=== PATIENT | female | born 1945 | race Caucasian/White ===

== ENCOUNTER 2019-05-15 01:34 | Inpatient (IN) ==
[2019-05-15 02:03] LABS: Bilirubin,Urine Negative (Negative); Blood,Urine Negative (Negative); Clarity,Urine Clear (Clear); Color,Urine Yellow (Yellow); Glucose,Urine (UA) Normal (Normal); Ketones,Urine Negative (Negative); Leukocyte Esterase,Urine Negative (Negative); Nitrite,Urine Negative (Negative); Protein,Urine Negative (Neg-Trace); Specific Gravity,Urine 1.012 (1.010-1.025); Urobilinogen,Urine Normal (Normal)
[2019-05-15] MEDS ORDERED: Aspirin 81 MG TAB.CHEW PO ONE (02:23)
[2019-05-15] MEDS ORDERED: *HR* HYDROmorphone (PF) 1 MG/ML SYRINGE IVP ONE ×2 (02:23→04:37)
[2019-05-15] MEDS ORDERED: Ondansetron 4 MG/2 ML VIAL IVP ONE (02:24)
[2019-05-15 02:25] LABS: Basophils % 0.4 %; Eosinophils # 0.2 K/mcL (0.0-0.6); Eosinophils % 1.5 %; Hematocrit 43.5 % (35.3-44.9); Hemoglobin 13.4 g/dL (11.5-15.4); Immature Granulocytes % 0.3 % (0-4); Lymphocytes # 1.8 K/mcL (0.6-4.6); Lymphocytes % 15.7 %; Mean Corpuscular HGB Conc 30.8 g/dL (31.6-35.5); Mean Corpuscular Hemoglobin 27.1 pg (28.0-33.3); Mean Corpuscular Volume 88.1 fL (83.0-100.0); Mean Platelet Volume 9.9 fL (9.4-12.4); Monocytes # 0.9 K/mcL (0.0-1.3); Monocytes % 8.3 %; Neutrophils # 8.3 K/mcL (1.6-8.9); Platelet Count 225 K/mcL (140-400); Red Blood Count 4.94 M/mcL (3.82-4.97); Red Cell Distribution Width 13.7 % (11.5-14.5); Segmented Neutrophils % 73.8 %; White Blood Count 11.3 K/mcL (4.3-11.1)
[2019-05-15] MEDS ORDERED: Isovue-370 500 ML BOTTLE IVP ONE (02:40)
[2019-05-15 03:17] LABS: Lipase > 1800 Units/L (11-82)
[2019-05-15 03:18] LABS: Alanine Aminotransferase 27 Units/L (7-52); Albumin 3.9 g/dL (3.5-5.7); Albumin/Globulin Ratio 1.2 (1.1-2.2); Alkaline Phosphatase 89 Units/L (34-104); Aspartate Amino Transferase 49 Units/L (13-39); BUN/Creatinine Ratio 22 (6-26); Bilirubin,Direct 0.1 mg/dL (0.0-0.2); Bilirubin,Indirect 0.4 mg/dL (0.0-1.0); Bilirubin,Total 0.5 mg/dL (0.3-1.0); Blood Urea Nitrogen 17 mg/dL (8-23); Calcium 9.5 mg/dL (8.6-10.3); Carbon Dioxide 24 mEq/L (23-29); Chloride 104 mEq/L (98-107); Globulin 3.3 g/dL (2.4-3.5); Glucose 134 mg/dL (70-105); Osmolality,Calculated 282 (280-300); Potassium 3.7 mEq/L (3.5-5.1); Sodium 134 mEq/L (136-145); Total Protein 7.2 g/dL (6.4-8.9); eGFR For African Americans > 60 (> 60); eGFR For Non-African Americans > 60 (> 60)
[2019-05-15 04:09] LABS: Triglycerides 74 mg/dL (< 150)
[2019-05-15] MEDS ORDERED: Naloxone 0.4 MG/ML INJ IVP PRN (07:16)
[2019-05-15] MEDS ORDERED: Ampicillin/Sulbactam 3,000 MG in 0.9 % Sodium Chloride 100 ML IVPB SCH (07:18)
[2019-05-15] MEDS: 0.9 % Sodium Chloride 1,000 ML IVC SCH ×2 (09:36→23:38)
[2019-05-15] MEDS: Ampicillin/Sulbactam 3,000 MG in 0.9 % Sodium Chloride Mini Bag 100 ML IVPB SCH ×3 (09:36→23:39)
[2019-05-15] MEDS ORDERED: Ondansetron 4 MG/2 ML VIAL IVP PRN (14:18)
[2019-05-15] MEDS: Ketorolac 15 MG/ML VIAL IVP PRN ×2 (14:48→21:57)
[2019-05-16] MEDS ORDERED: Ampicillin/Sulbactam 3,000 MG in 0.9 % Sodium Chloride Mini Bag 100 ML IVPB SCH (06:00)
[2019-05-16] MEDS: Ketorolac 15 MG/ML VIAL IVP PRN (06:09)
[2019-05-16] MEDS: Ampicillin/Sulbactam 3,000 MG in 0.9 % Sodium Chloride Mini Bag 100 ML IVPB SCH ×3 (06:11→18:04)
[2019-05-16 07:28] LABS: Basophils % 0.1 %; Eosinophils % 0.2 %; Hematocrit 38.4 % (35.3-44.9); Hemoglobin 12.1 g/dL (11.5-15.4); Immature Granulocytes % 0.6 % (0-4); Lymphocytes # 1.5 K/mcL (0.6-4.6); Lymphocytes % 12.8 %; Mean Corpuscular HGB Conc 31.5 g/dL (31.6-35.5); Mean Corpuscular Hemoglobin 27.9 pg (28.0-33.3); Mean Corpuscular Volume 88.5 fL (83.0-100.0); Mean Platelet Volume 10.1 fL (9.4-12.4); Monocytes # 0.9 K/mcL (0.0-1.3); Monocytes % 7.3 %; Neutrophils # 9.5 K/mcL (1.6-8.9); Platelet Count 182 K/mcL (140-400); Red Blood Count 4.34 M/mcL (3.82-4.97)
[2019-05-16] MEDS ORDERED: *HR* Rocuronium Bromide 50 MG/5 ML VIAL ONE (07:33)
[2019-05-16] MEDS ORDERED: Lidocaine -MPF 2% 2 ML VIAL ONE (07:33)
[2019-05-16] MEDS ORDERED: Ondansetron 4 MG/2 ML VIAL ONE (07:33)
[2019-05-16] MEDS ORDERED: *HR* FentaNYL (PF) 100 MCG/2 ML VIAL ONE (07:34)
[2019-05-16] MEDS ORDERED: *HR* Propofol 200 MG/20 ML VIAL IVP ONE (07:34)
[2019-05-16] MEDS ORDERED: Dexamethasone 4 MG/ML VIAL ONE (07:38)
[2019-05-16 07:45] LABS: Alanine Aminotransferase 19 Units/L (7-52); Albumin 3.4 g/dL (3.5-5.7); Albumin/Globulin Ratio 1.3 (1.1-2.2); Alkaline Phosphatase 70 Units/L (34-104); Aspartate Amino Transferase 20 Units/L (13-39); BUN/Creatinine Ratio 16 (6-26); Bilirubin,Total 0.6 mg/dL (0.3-1.0); Blood Urea Nitrogen 10 mg/dL (8-23); Calcium 8.4 mg/dL (8.6-10.3); Carbon Dioxide 27 mEq/L (23-29); Chloride 104 mEq/L (98-107); Globulin 2.6 g/dL (2.4-3.5); Glucose 104 mg/dL (70-105); Osmolality,Calculated 285 (280-300); Potassium 3.5 mEq/L (3.5-5.1); Sodium 138 mEq/L (136-145); eGFR For African Americans > 60 (> 60); eGFR For Non-African Americans > 60 (> 60)
[2019-05-16] MEDS ORDERED: Acetaminophen IV 1,000 MG/100 ML INFUS..BTL ONE (07:52)
[2019-05-16] MEDS ORDERED: Famotidine 20 MG/2 ML VIAL ONE (07:52)
[2019-05-16] MEDS ORDERED: *HR* OxyCODONE Immed Rel 5 MG TABLET PO PRN (07:57)
[2019-05-16] MEDS ORDERED: *HR* Promethazine 25 MG/ML VIAL IVP PRN (07:57)
[2019-05-16] MEDS ORDERED: *HR* HYDROmorphone PF 0.5 MG/0.5 ML SYRINGE IVP PRN (07:57)
[2019-05-16] MEDS ORDERED: Ondansetron 4 MG/2 ML VIAL IVP ONE (07:57)
[2019-05-16] MEDS: Ringers Solution, Lactated 1,000 ML ONE ×2 (08:00→09:16)
[2019-05-16] MEDS ORDERED: *HR* Midazolam HCl 2 MG/2 ML VIAL ONE (08:06)
[2019-05-16] MEDS ORDERED: Bupivacaine/EPI 1:200k 0.5%PF 30 ML VIAL ONE (08:34)
[2019-05-16] MEDS ORDERED: *HR* PHENYLEPHRINE 1,000 MCG/10 ML SYRINGE IVP ONE (08:56)
[2019-05-16] MEDS ORDERED: Naloxone 0.4 MG/ML INJ IVP PRN (10:54)
[2019-05-16] MEDS ORDERED: Ondansetron 4 MG/2 ML VIAL IVP PRN (10:54)
[2019-05-16] MEDS ORDERED: Ketorolac 15 MG/ML VIAL IVP PRN (10:54)
[2019-05-16] MEDS: Trolamine Salicylate/Aloe Vera 85 APPL/85 GM TUBE TP PRN (21:06)
[2019-05-17] MEDS: Ampicillin/Sulbactam 3,000 MG in 0.9 % Sodium Chloride Mini Bag 100 ML IVPB SCH ×2 (01:59→05:49)
[2019-05-17 07:50] LABS: Basophils % 0.2 %; Hematocrit 33.4 % (35.3-44.9); Hemoglobin 10.7 g/dL (11.5-15.4); Immature Granulocytes % 0.4 % (0-4); Lymphocytes # 1.6 K/mcL (0.6-4.6); Lymphocytes % 11.8 %; Mean Corpuscular Hemoglobin 27.9 pg (28.0-33.3); Mean Platelet Volume 10.6 fL (9.4-12.4); Monocytes # 0.9 K/mcL (0.0-1.3); Monocytes % 6.9 %; Neutrophils # 10.6 K/mcL (1.6-8.9); Platelet Count 163 K/mcL (140-400); Red Blood Count 3.84 M/mcL (3.82-4.97); Red Cell Distribution Width 14.1 % (11.5-14.5); Segmented Neutrophils % 80.7 %; White Blood Count 13.2 K/mcL (4.3-11.1)
[2019-05-17 08:10] LABS: BUN/Creatinine Ratio 19 (6-26); Blood Urea Nitrogen 10 mg/dL (8-23); Calcium 8.4 mg/dL (8.6-10.3); Carbon Dioxide 25 mEq/L (23-29); Chloride 106 mEq/L (98-107); Glucose 94 mg/dL (70-105); Osmolality,Calculated 283 (280-300); Potassium 3.4 mEq/L (3.5-5.1); Sodium 137 mEq/L (136-145); eGFR For African Americans > 60 (> 60); eGFR For Non-African Americans > 60 (> 60)
[2019-05-17] MEDS ORDERED: Potassium Chloride Elixir 20 MEQ/15 ML UDC PO ONE (09:02)
[2019-05-17] MEDS: Ampicillin/Sulbactam 3,000 MG in 0.9 % Sodium Chloride 100 ML IVPB SCH ×2 (12:26→17:36)
[2019-05-18] MEDS: Ampicillin/Sulbactam 3,000 MG in 0.9 % Sodium Chloride 100 ML IVPB SCH ×2 (01:17→05:22)
[2019-05-18] MEDS: Trolamine Salicylate/Aloe Vera 85 APPL/85 GM TUBE TP PRN (02:06)
[2019-05-18 04:42] LABS: Hematocrit 32.5 % (35.3-44.9); Hemoglobin 10.3 g/dL (11.5-15.4); Mean Corpuscular HGB Conc 31.7 g/dL (31.6-35.5); Mean Corpuscular Hemoglobin 28.1 pg (28.0-33.3); Mean Corpuscular Volume 88.8 fL (83.0-100.0); Mean Platelet Volume 10.1 fL (9.4-12.4); Platelet Count 161 K/mcL (140-400); Red Blood Count 3.66 M/mcL (3.82-4.97); Red Cell Distribution Width 14.1 % (11.5-14.5); White Blood Count 9.5 K/mcL (4.3-11.1)
[2019-05-18 05:00] LABS: BUN/Creatinine Ratio 23 (6-26); Blood Urea Nitrogen 14 mg/dL (8-23); Calcium 8.3 mg/dL (8.6-10.3); Carbon Dioxide 27 mEq/L (23-29); Chloride 106 mEq/L (98-107); Glucose 96 mg/dL (70-105); Osmolality,Calculated 284 (280-300); Potassium 3.6 mEq/L (3.5-5.1); Sodium 137 mEq/L (136-145); eGFR For African Americans > 60 (> 60); eGFR For Non-African Americans > 60 (> 60)
[2019-05-18 07:00] VITALS: BP 114/69
[2019-05-18] MEDS ORDERED: Ampicillin/Sulbactam 3,000 MG in 0.9 % Sodium Chloride Mini Bag 100 ML IVPB SCH (18:00)
== END 2019-05-18 13:17 | disposition home or self-care (01) | DRG 417 ==
LOC: 3ANU 01:34 → EMEROOARM 01:34 → SUATTDRO 05:33 → 3ANU 06:51
PROVIDERS: ADMIT Family Medicine; ATTEND Internal Medicine

== ENCOUNTER 2019-05-27 12:25 | Observation (INO) ==
[2019-05-27] MEDS ORDERED: 0.9 % Sodium Chloride 1,000 ML IVC ONE (12:44)
[2019-05-27 13:08] LABS: Basophils % 0.4 %; Eosinophils # 0.1 K/mcL (0.0-0.6); Eosinophils % 0.8 %; Hematocrit 41.3 % (35.3-44.9); Hemoglobin 13.2 g/dL (11.5-15.4); Immature Granulocytes % 0.8 % (0-4); Lymphocytes # 1.5 K/mcL (0.6-4.6); Lymphocytes % 15.1 %; Mean Corpuscular Hemoglobin 26.8 pg (28.0-33.3); Mean Corpuscular Volume 83.9 fL (83.0-100.0); Mean Platelet Volume 9.1 fL (9.4-12.4); Monocytes # 0.3 K/mcL (0.0-1.3); Monocytes % 2.7 %; Neutrophils # 8.2 K/mcL (1.6-8.9); Platelet Count 333 K/mcL (140-400); Red Blood Count 4.92 M/mcL (3.82-4.97); Red Cell Distribution Width 13.8 % (11.5-14.5); Segmented Neutrophils % 80.2 %; White Blood Count 10.2 K/mcL (4.3-11.1)
[2019-05-27 13:14] LABS: INR 1.1; Prothrombin Time 12.2 Seconds (9.4-12.1)
[2019-05-27 13:16] LABS: Activated Partial Thrombo Time 23.6 Seconds (26.0-36.0)
[2019-05-27] MEDS ORDERED: Isovue-370 500 ML BOTTLE IVP ONE (13:20)
[2019-05-27] MEDS ORDERED: Ondansetron 4 MG/2 ML VIAL IVP ONE (13:28)
[2019-05-27 13:30] LABS: Alanine Aminotransferase 16 Units/L (7-52); Alkaline Phosphatase 86 Units/L (34-104); Amylase 31 Units/L (29-103); Aspartate Amino Transferase 16 Units/L (13-39); BUN/Creatinine Ratio 14 (6-26); Bilirubin,Direct 0.1 mg/dL (0.0-0.2); Bilirubin,Indirect 0.3 mg/dL (0.0-1.0); Bilirubin,Total 0.4 mg/dL (0.3-1.0); Blood Urea Nitrogen 8 mg/dL (8-23); Calcium 9.6 mg/dL (8.6-10.3); Carbon Dioxide 25 mEq/L (23-29); Chloride 99 mEq/L (98-107); Globulin 3.9 g/dL (2.4-3.5); Glucose 117 mg/dL (70-105); Lipase 45 Units/L (11-82); Osmolality,Calculated 275 (280-300); Potassium 3.8 mEq/L (3.5-5.1); Sodium 133 mEq/L (136-145); Total Protein 7.9 g/dL (6.4-8.9); Troponin I < 0.03 ng/mL (< 0.04); eGFR For African Americans > 60 (> 60); eGFR For Non-African Americans > 60 (> 60)
[2019-05-27] MEDS ORDERED: *HR* FentaNYL (PF) 100 MCG/2 ML VIAL IVP ONE ×2 (13:31→15:02)
[2019-05-27 13:55] LABS: Bilirubin,Urine Negative (Negative); Blood,Urine Negative (Negative); Clarity,Urine Cloudy (Clear); Color,Urine Yellow (Yellow); Glucose,Urine (UA) 100 mg/dL (Normal); Ketones,Urine Trace mg/dL (Negative); Leukocyte Esterase,Urine Negative (Negative); Nitrite,Urine Negative (Negative); Protein,Urine 30 mg/dL (Neg-Trace); Specific Gravity,Urine 1.016 (1.010-1.025); Urobilinogen,Urine Normal (Normal)
[2019-05-27 13:58] LABS: Bacteria,Urine None Seen per hpf (None-Few); Hyaline Casts,Urine None Seen per lpf (None-Few); RBC,Urine 0-3 per hpf (0-3); Squamous Epithelial Cell,Urine Many per lpf (None-Few); WBC,Urine 0-3 per hpf (0-3)
[2019-05-27] MEDS ORDERED: Naloxone 0.4 MG/ML INJ IVP PRN (16:21)
[2019-05-27] MEDS: Ondansetron 4 MG/2 ML VIAL IVP PRN ×2 (17:30→23:28)
[2019-05-27] MEDS: Ketorolac 15 MG/ML VIAL IVP SCH ×2 (20:15→23:28)
[2019-05-27] MEDS: Ringers Solution, Lactated 1,000 ML IVC SCH (20:16)
[2019-05-27] MEDS ORDERED: *HR* Promethazine 25 MG/ML VIAL IVP ONE (20:35)
[2019-05-28] MEDS: Ringers Solution, Lactated 1,000 ML IVC SCH ×3 (02:36→14:35)
[2019-05-28] MEDS: Ketorolac 15 MG/ML VIAL IVP SCH (05:39)
[2019-05-28 05:53] LABS: Basophils % 0.2 %; Eosinophils % 0.1 %; Hemoglobin 12.3 g/dL (11.5-15.4); Immature Granulocytes % 0.5 % (0-4); Lymphocytes # 1.9 K/mcL (0.6-4.6); Lymphocytes % 13.2 %; Mean Corpuscular HGB Conc 33.2 g/dL (31.6-35.5); Mean Corpuscular Hemoglobin 27.6 pg (28.0-33.3); Mean Corpuscular Volume 83.1 fL (83.0-100.0); Mean Platelet Volume 8.9 fL (9.4-12.4); Monocytes # 0.8 K/mcL (0.0-1.3); Monocytes % 5.7 %; Neutrophils # 11.8 K/mcL (1.6-8.9); Platelet Count 342 K/mcL (140-400); Red Blood Count 4.45 M/mcL (3.82-4.97); Red Cell Distribution Width 13.9 % (11.5-14.5); Segmented Neutrophils % 80.3 %; White Blood Count 14.7 K/mcL (4.3-11.1)
[2019-05-28 06:06] LABS: BUN/Creatinine Ratio 18 (6-26); Blood Urea Nitrogen 9 mg/dL (8-23); Calcium 9.2 mg/dL (8.6-10.3); Carbon Dioxide 25 mEq/L (23-29); Chloride 97 mEq/L (98-107); Glucose 113 mg/dL (70-105); Lipase 25 Units/L (11-82); Osmolality,Calculated 271 (280-300); Potassium 3.3 mEq/L (3.5-5.1); Sodium 131 mEq/L (136-145); eGFR For African Americans > 60 (> 60); eGFR For Non-African Americans > 60 (> 60)
[2019-05-28] MEDS: 0.9 % Sodium Chloride 1,000 ML IVC SCH ×2 (07:31→07:32)
[2019-05-28] MEDS ORDERED: Potassium Chloride 40 MEQ, Lidocaine 1% 2 ML in 0.9 % Sodium Chloride 500 ML IVPB ONE (07:43)
[2019-05-28] MEDS ORDERED: *HR* Propofol 200 MG/20 ML VIAL IVP ONE (10:02)
[2019-05-28] MEDS ORDERED: *HR* Midazolam HCl 2 MG/2 ML VIAL ONE (10:02)
[2019-05-28] MEDS ORDERED: *HR* FentaNYL (PF) 100 MCG/2 ML VIAL ONE (10:02)
[2019-05-28] MEDS ORDERED: Ondansetron 4 MG/2 ML VIAL ONE (10:38)
[2019-05-28] MEDS ORDERED: Lidocaine -MPF 4% 5 ML AMPUL ONE (10:38)
[2019-05-28] MEDS ORDERED: Dexamethasone 4 MG/ML VIAL ONE (10:38)
[2019-05-28] MEDS ORDERED: HYDROCHLOROTHIAZIDE 12.5 MG PO SCH (12:00)
[2019-05-28] MEDS: amLODIPine 5 MG TABLET PO SCH (12:45)
[2019-05-28] MEDS: Pantoprazole 40 MG VIAL IVP SCH (17:32)
[2019-05-28] MEDS: *HR* Heparin 5,000 UNIT/ML VIAL SQ SCH (17:32)
[2019-05-28] MEDS: Ondansetron 4 MG/2 ML VIAL IVP PRN (17:34)
[2019-05-28] MEDS ORDERED: Trolamine Salicylate/Aloe Vera 85 APPL/85 GM TUBE TP PRN (22:27)
[2019-05-29] MEDS: Ringers Solution, Lactated 1,000 ML IVC SCH ×2 (00:14→10:21)
[2019-05-29 03:08] LABS: Hematocrit 34.7 % (35.3-44.9); Hemoglobin 11.2 g/dL (11.5-15.4); Mean Corpuscular HGB Conc 32.3 g/dL (31.6-35.5); Mean Corpuscular Hemoglobin 27.5 pg (28.0-33.3); Mean Corpuscular Volume 85.3 fL (83.0-100.0); Mean Platelet Volume 9.5 fL (9.4-12.4); Platelet Count 317 K/mcL (140-400); Red Blood Count 4.07 M/mcL (3.82-4.97); Red Cell Distribution Width 14.4 % (11.5-14.5); White Blood Count 11.4 K/mcL (4.3-11.1)
[2019-05-29 03:27] LABS: BUN/Creatinine Ratio 18 (6-26); Blood Urea Nitrogen 10 mg/dL (8-23); Calcium 9.1 mg/dL (8.6-10.3); Carbon Dioxide 23 mEq/L (23-29); Chloride 101 mEq/L (98-107); Glucose 96 mg/dL (70-105); Magnesium 1.8 mg/dL (1.6-2.6); Osmolality,Calculated 273 (280-300); Potassium 3.7 mEq/L (3.5-5.1); Sodium 132 mEq/L (136-145); eGFR For African Americans > 60 (> 60); eGFR For Non-African Americans > 60 (> 60)
[2019-05-29] MEDS: *HR* Heparin 5,000 UNIT/ML VIAL SQ SCH ×2 (06:38→17:07)
[2019-05-29] MEDS: Pantoprazole 40 MG VIAL IVP SCH (06:38)
[2019-05-29] MEDS: amLODIPine 5 MG TABLET PO SCH (08:32)
[2019-05-29] MEDS: Magnesium Oxide 400 MG TABLET PO SCH (08:32)
[2019-05-29] MEDS ORDERED: Furosemide 20 MG TABLET PO PRN (12:55)
[2019-05-29 13:29] LABS: VBG Ionized Calcium 1.28 mmol/L (1.15-1.35)
[2019-05-30 04:15] VITALS: BP 107/66
[2019-05-30] MEDS: *HR* Heparin 5,000 UNIT/ML VIAL SQ SCH (06:14)
[2019-05-30 07:25] LABS: Hematocrit 36.2 % (35.3-44.9); Hemoglobin 11.4 g/dL (11.5-15.4); Mean Corpuscular HGB Conc 31.5 g/dL (31.6-35.5); Mean Corpuscular Hemoglobin 27.1 pg (28.0-33.3); Mean Platelet Volume 9.2 fL (9.4-12.4); Platelet Count 297 K/mcL (140-400); Red Blood Count 4.21 M/mcL (3.82-4.97); Red Cell Distribution Width 14.7 % (11.5-14.5); White Blood Count 8.2 K/mcL (4.3-11.1)
[2019-05-30 07:49] LABS: BUN/Creatinine Ratio 20 (6-26); Blood Urea Nitrogen 13 mg/dL (8-23); Carbon Dioxide 28 mEq/L (23-29); Chloride 104 mEq/L (98-107); Glucose 83 mg/dL (70-105); Osmolality,Calculated 281 (280-300); Potassium 3.5 mEq/L (3.5-5.1); Sodium 136 mEq/L (136-145); eGFR For African Americans > 60 (> 60); eGFR For Non-African Americans > 60 (> 60)
[2019-05-30] MEDS: amLODIPine 5 MG TABLET PO SCH (10:02)
[2019-05-30] MEDS: Magnesium Oxide 400 MG TABLET PO SCH (10:03)
[2019-05-30] MEDS: Ondansetron 4 MG/2 ML VIAL IVP PRN (10:04)
[2019-05-31 10:08] LABS: ANA IgG by ELISA NONE DETECTED (None Detected)
== END 2019-05-30 11:28 | disposition home or self-care (01) ==
LOC: SUATTDRO → 3ANU 12:25 → EMEROOARM 12:25 → SUATTDRO 17:46 → 3ANU 18:16
PROVIDERS: ADMIT Internal Medicine; ATTEND Internal Medicine
PROC: ENDOEBX (2019-05-28 11:30)